=== PATIENT | female | born 2000 | race Caucasian/White ===

== ENCOUNTER 2020-09-18 10:08 | Outpatient (REF) | payer OTHER, SELFPAY | END 2020-09-18 10:09 | disposition home or self-care (01) | LOC: HO.LAB 10:08 | PROVIDERS: Visit Provider Internal Medicine | DX: Z20.828 Contact with and (suspected) exposure to other viral communicable diseases (principal) | CPT/HCPCS: 87635 ==

== ENCOUNTER 2020-09-24 14:32 | Outpatient (REF) | payer OTHER, SELFPAY | END 2020-09-24 14:33 | disposition home or self-care (01) | LOC: HO.LAB 14:32 | PROVIDERS: Visit Provider Internal Medicine | DX: Z20.828 Contact with and (suspected) exposure to other viral communicable diseases (principal) | CPT/HCPCS: 87635 ==

== ENCOUNTER 2021-11-05 15:48 | Outpatient (REF) | payer OTHER, SELFPAY ==
[2021-11-05 16:04] LABS: MANUAL DIFF FLAG NO
[2021-11-05 16:22] LABS: Basophils Absolute Auto 0.2 X10*3/uL (0.0-0.2); Basophils Percent Auto 1.2 % (0-2); Eosinophils Absolute Auto 0.4 X10*3/uL (0.0-0.4); Eosinophils Percent Auto 2.9 % (0-4); Hematocrit 38.6 % (37.0-47.0); Hemoglobin 12.3 g/dl (12.0-16.0); Imm Gran Abs Auto 0.06 X10*3/uL (0.00-0.03); Imm Gran Pct Auto 0.5 % (0.0-0.4); Lymphocytes Absolute Auto 3.5 X10*3/uL (1.2-4.9); Mean Corpuscular HGB Conc 31.9 g/dl (31.0-35.0); Mean Corpuscular Hemoglobin 26.5 pg (27.0-33.0); Mean Corpuscular Volume 83.2 fL (80.0-98.0); Mean Platelet Volume 9.7 fL (9.4-12.3); Monocytes Absolute Auto 0.9 X10*3/uL (0.1-1.2); Monocytes Percent Auto 7.5 % (2-11); NRBC Pct Auto 0.2 /100WBC (0.0-0.2); Neutrophils Absolute Auto 7.1 x10*3/uL (2.0-8.3); Neutrophils Percent Auto 58.9 % (45-73); Platelet Count 456 X10*3/uL (160-400); Red Blood Count 4.64 X10*6/uL (4.20-5.50); Red Cell Distribution Width 13.6 % (11.0-16.0); White Blood Count 12.1 X10*3/uL (4.8-10.8)
[2021-11-05 16:40] LABS: Alanine Aminotransferase 10 U/L (0-31); Albumin Level 4.1 g/dL (3.5-5.0); Alkaline Phosphatase 57 U/L (39-117); Anion Gap 11 (12-20); Aspartate Amino Transferase 13 U/L (5-31); Bilirubin Total 0.2 mg/dL (0.0-1.0); Blood Urea Nitrogen 12 mg/dL (9-16); Calcium 9.7 mg/dL (8.4-10.2); Carbon Dioxide 28 mmol/L (22-29); Chloride 104 mmol/L (96-108); Cholesterol 157 mg/dL; Estimated Glomerular Filt Rate > 60; Glucose Random 83 mg/dL (60-115); Potassium 4.3 mmol/L (3.3-5.1); Sodium 139 mmol/L (135-145); Total Protein 7.3 g/dL (6.5-8.0)
[2021-11-05 17:05] LABS: Free T4 (Free Thyroxine) 0.94 ng/dL (0.71-1.85); Thyroid Stimulating Hormone 1.46 uIU/mL (0.32-4.0)
[2021-11-05 17:12] LABS: Vitamin B12 643 pg/mL (200-900)
== END 2021-11-05 15:49 | disposition home or self-care (01) ==
LOC: HO.LAB 15:48
PROVIDERS: PCP Internal Medicine; Visit Provider Internal Medicine
DX: R53.83 Other fatigue (principal); L98.9 Disorder of the skin and subcutaneous tissue, unspecified; Z83.3 Family history of diabetes mellitus
CPT/HCPCS: 36415; 80053; 82465; 82607; 84439; 84443; 85025

== ENCOUNTER 2022-04-22 14:59 | Outpatient (REF) | payer OTHER, SELFPAY ==
[2022-04-23 21:06] LABS: Rubella IgG Antibody 1.54 Index; Rubeola IgG (Measles) <13.50 AU/mL
[2022-04-24 01:27] LABS: Varicella IgG Antibody <135.00 index
[2022-04-26 05:52] LABS: TS Negative Control Passed; TS Panel A 0; TS Panel B 3; TS Positive Control Passed; TSpotTB Negative (Negative)
[2022-04-26 08:04] LABS: HBS Num1 1.37 mIU/mL (0-7.99); ~Hepatitis B Surface Antibody NONREACTIVE (Nonreactive)
== END 2022-04-22 15:00 | disposition home or self-care (01) ==
LOC: HO.LAB 14:59
PROVIDERS: PCP Internal Medicine; Visit Provider Internal Medicine
DX: Z02.0 Encounter for examination for admission to educational institution (principal); Z11.1 Encounter for screening for respiratory tuberculosis
CPT/HCPCS: 36415; 86481; 86706; 86735; 86762; 86765; 86787

== ENCOUNTER 2023-03-31 23:16 | Emergency (ER) | payer OTHER, SELFPAY ==
[2023-03-31 23:22] VITALS: BP 130/84; PULSE 104; RESP 20; TEMP 36.7; O2SAT 100; BMI 26.5
--- NOTE | 2023-04-01 00:06 | ED_ITS ---
HPI - General Adult General Chief complaint: Weakness Stated complaint: Yellow hands/tiredness/headaches Time Seen by Provider: 03/31/23 23:59 Source: patient Mode of arrival: ambulatory Limitations: no limitations History of Present Illness HPI narrative: 22-year-old female withPMH of migraines presents with fatigue X1 month and yellowing between her fingers on her left hand X3 days. Patient reports she normally feels fatigued at baseline and she contributes this to migraines. Patient reports Excedrin typically resolves her migraines. Patient additionally reports that she recently started a women's multivitamin, and that the only change she can think of. She takes no other medications. Patient denies lig htheadedness, LOC, vision changes, dzziness, head trauma, fevers, chills, CP or SOB. Denies any other medical complaints. Related Data Previous Rx's Medication Instructions Recorded diphenhydramine HCl 25 mg capsule 25 mg PO TID PRN allergic reaction 04/01/23 (Benadryl) #20 caps ketorolac 10 mg tablet 10 mg PO TID PRN pain 5 days #15 04/01/23 tabs metoclopramide HCl 10 mg tablet 10 mg PO Q6H PRN headache #20 tabs 04/01/23 (Reglan) Allergies Allergy/AdvReac Type Severity Reaction Status Date / Time No Known Allergies Allergy Unverified 08/13/20 19:25 [No Known Allergies*] Review of Systems Review of Systems: Constitutional : No Weight loss, No Fever, No Chills, + Fatigue, No Malaise Eyes: No Eye Pain, No Swelling, No Redness, NO scleral icterus Cardiovascular : No Chest Pain, No SOB, No Dyspnea on Exertion, No Orthopnea, No Edema, No Palpitations Respiratory : No Cough, No Sputum, No Wheezing Gastrointestinal : No Nausea, No Vomiting, No Diarrhea, No Constipation, No abdominal Pain, No Hematochezia, No Melena Genitourinary : No Dysuria, No Urinary Frequency, No Hematuria, Musculoskeletal : No joint pain, No Myalgias, No Joint Swelling Skin : No Skin Lesions, Yellowing between finger-spaces on left hand Neuro : No Weakness, No Numbness, No Dizziness, No Headache Psych : No Anxiety/Panic, No Depression All other systems reviewed and are negative Yes all other systems are reviewed and are negative ON LICENSE OF [facility] Past Medical History Attestation statement: The following information was validated with the patient. Source: old records reviewed and nursing notes reviewed Social History Social History Advance Directives: No Advance Directives Information Provided: Yes Physical Exam ED Vital Signs: Vital Signs - 24 hr 03/31/23 23:22 Temperature 98.1 F Pulse Rate 104 H Respiratory Rate 20 Blood Pressure 130/84 Pulse Oximetry 100 BMI result Body Mass Index 26.5 VSS Appearance: Alert.? Oriented X3.? No acute distress.? Head: Normocephalic, atraumatic, no step-offs or deformities Eyes: Pupils equal, round and reactive to light.?No scleral icterus. Neck: Normal inspection.? Neck supple.? CVS: Normal heart rate and rhythm.? Pulses normal.? Respiratory: No respiratory distress.? Breath sounds normal.? Abdomen: Soft and nontender.? Skin: Skin warm and dry.? Normal skin turgor.?Yellow discoloration in web-spaces on left hand unlikely jaundice, likely secondary to contact with object or fomite. No jaundice. Extremities: No lower extremity edema.? No calf ttp. 5/5 strength to bilateral upper and lower extremities Back: No midline tenderness, no C-spine tenderness, full range of motion, no CVA tenderness bilaterally Neuro: Oriented X 3.? No motor deficit.? No sensory deficit. CN 2-12 intact Course Reevaluation(s) Reevaluation #1: Patient complained of headache therefore headache regimen was given Time: 00:17 Reevaluation #2: CBC with slight leukocytosis 14.9, I do not suspect infection on this patient, baseline labs to appear to have a slight leukocytosis also, no acute electrolyte abnormalities requiring intervention. Liver enzymes within normal limits. Beta hCG negative. Toradol, Reglan and Benadryl given w/ improvmemt of sx. Patient will be di scharged home on same. Patient feels better about labs being normal, she states she was anxious about her hands being discolored. Will have her follow up with PCP and Dermatology if this persists. Educated patient on diagnosis and treatment plan, answered all question, patient verbalizes understanding. At this time patient will be discharged home, advised to return with new or worsening symptoms. Educated on worrisome signs and symptoms and when to return. At this time I feel comfortable discharge home. Time: 00:59 Medications Administered Discontinued Medications Generic Name Dose Route Start Last Admin Trade Name Pooja PRN Reason Stop Dose Admin Diphenhydramine HCl 50 mg 04/01/23 00:17 04/01/23 00:42 Diphenhydramine Hcl 50 Mg/Ml Vial IVPUSH 04/01/23 00:18 50 mg ONCE ONE Administration Ketorolac Tromethamine 30 mg 04/01/23 00:17 04/01/23 00:43 Ketorolac Tromethamine 15 Mg/Ml Vial IVPUSH 04/01/23 00:18 30 mg ONCE ONE Administration Metoclopramide HCl 10 mg 04/01/23 00:17 04/01/23 00:44 Metoclopramide Hcl 10 Mg/2 Ml Vial IVPUSH 04/01/23 00:18 10 mg ONCE ONE Administration Medical Decision Making Medical Decision Making [facility] Narrative: 22 year old female presents with fatigue X1 month and skin yellowing on left hand X3 days. Patient additionally endorses frontal band-like headache during physical examination. PE: Skin: Skin warm and dry.? Normal skin turgor.?Yellow discoloration in web- spaces on left hand. Plan: basic labs Ddx: Typical migraine, anemia, electrolyte abnormalities, chronic fatigue, anxiety. Unlikely stroke, posterior stroke, ICH. Skin discoloration unlikely jaundice, likely secondary to contact with object or fomite. No signs of meningitis or encephalitis. Differential Diagnosis Differential Diagnoses: The differential diagnosis associated with the presentation includes Typical migraine, anemia, electrolyte abnormalities, chronic fatigue, anxiety. Unlikely stroke, posterior stroke, ICH. Skin discoloration unlikely jaundice, likely secondary to contact with object or fomite. No signs of meningitis or encephalitis Admission/Observation Consideration of admission/observation: Escalation of care including admission/observation considered Lab Data [facility] Lab Attestation statement: I reviewed the patient's lab results. 04/01/23 00:11 04/01/23 00:11 Labs: Lab Results 04/01/23 04/01/23 Range/Units 00:11 00:11 WBC 14.9 H (4.8-10.8) X10*3/uL RBC 4.93 (4.20-5.50) X10*6/uL Hgb 12.9 (12.0-16.0) g/dl Hct 40.5 (37.0-47.0) % MCV 82.2 (80.0-98.0) fL MCH 26.2 L (27.0-33.0) pg MCHC 31.9 (31.0-35.0) g/dl RDW 13.9 (11.0-16.0) % Plt Count 404 H (160-400) X10*3/uL MPV 10.0 (9.4-12.3) fL Immature Gran % (Auto) 0.5 H (0.0-0.4) % Neut % (Auto) 59.0 (45-73) % Lymph % (Auto) 28.9 (20-40) % [place] % (Auto) 7.4 (2-11) % Eos % (Auto) 3.3 (0-4) % Baso % (Auto) 0.9 (0-2) % Lymph # (Auto) 4.3 (1.2-4.9) X10*3/uL [place] # (Auto) 1.1 (0.1-1.2) X10*3/uL Eos # (Auto) 0.5 H (0.0-0.4) X10*3/uL Baso # (Auto) 0.1 (0.0-0.2) X10*3/uL Abs Immat Gran (auto) 0.08 H (0.00-0.03) X10*3/uL Absolute Neuts (auto) 8.8 H (2.0-8.3) x10*3/uL Absolute Nucleated RBC 0.000 (0.0-0.012) X10*3/uL Nucleated RBC % (auto) 0.0 (0.0-0.2) /100WBC Sodium 140 (135-145) mmol/L Potassium 3.9 (3.3-5.1) mmol/L Chloride 109 H (96-108) mmol/L Carbon Dioxide 24 (22-29) mmol/L Anion Gap 11 L (12-20) BUN 13 (9-16) mg/dL Creatinine 0.72 (0.5-1.4) mg/dL Estim Creat Clear Calc 107.2 Estimated GFR > 60 Random Glucose 103 (60-115) mg/dL Calcium 9.2 (8.4-10.2) mg/dL Total Bilirubin 0.2 (0.0-1.0) mg/dL Direct Bilirubin < 0.2 (0.0-0.5) mg/dL AST 13 (5-31) U/L ALT 19 (0-31) U/L Alkaline Phosphatase 58 (39-117) U/L Total Protein 6.7 (6.5-8.0) g/dL Albumin 3.9 (3.5-5.0) g/dL Beta HCG, Quant < 2 mIU/mL Core Measures AMI core measures followed: Yes Measure exclusions: not indicated Critical Care Time Critical Care Time Critical Care Time: No Discharge Plan Discharge Clinical Impression: Headache, Discoloration of skin Patient Disposition: Home, Self-Care Instructions: Acute Headache (DC) Additional Instructions: Take your medications as prescribed. If you were prescribed antibiotics today, it is important that you take your medication to their entirety, do not skip any doses, do not finish them early. Follow-up with your primary care provider this week. Follow-up with dermatology is skin discoloration continues. Return to the emergency department with new or worsening symptoms. Such as fevers, chills, chest pain, shortness of breath, nausea, vomiting, dizziness, headache, vision changes, lethargy In case of emergency call 911 For headaches I have sent Reglan, Benadryl and Toradol to your pharmacy. Please always take Reglan and Benadryl together, taking Reglan alone can lead to involuntary muscle spasms. Toradol has been sent to your pharmacy, you tolerated this well in the department. Please take this as prescribed do not take this with ibuprofen, or other NSAIDs, do not mix this with alcohol. Side effects of this medication including increased risk for bleeding and possible kidney injury. Prescriptions: New ketorolac 10 mg tablet 10 mg PO TID PRN (Reason: pain) 5 Days Qty: 15 0RF diphenhydramine HCl [Benadryl] 25 mg capsule 25 mg PO TID PRN (Reason: allergic reaction) Qty: 20 0RF metoclopramide HCl [Reglan] 10 mg tablet 10 mg PO Q6H PRN (Reason: headache) Qty: 20 0RF Referrals: Physician,None [Primary Care Provider] - 2 days Stand Alone Forms: Work/School Release
[2023-04-01 00:22] LABS: MANUAL DIFF FLAG NO
[2023-04-01 00:23] LABS: Basophils Absolute Auto 0.1 X10*3/uL (0.0-0.2); Basophils Percent Auto 0.9 % (0-2); Eosinophils Absolute Auto 0.5 X10*3/uL (0.0-0.4); Eosinophils Percent Auto 3.3 % (0-4); Hematocrit 40.5 % (37.0-47.0); Hemoglobin 12.9 g/dl (12.0-16.0); Imm Gran Abs Auto 0.08 X10*3/uL (0.00-0.03); Imm Gran Pct Auto 0.5 % (0.0-0.4); Lymphocytes Absolute Auto 4.3 X10*3/uL (1.2-4.9); Lymphocytes Percent Auto 28.9 % (20-40); Mean Corpuscular HGB Conc 31.9 g/dl (31.0-35.0); Mean Corpuscular Hemoglobin 26.2 pg (27.0-33.0); Mean Corpuscular Volume 82.2 fL (80.0-98.0); Monocytes Absolute Auto 1.1 X10*3/uL (0.1-1.2); Monocytes Percent Auto 7.4 % (2-11); Neutrophils Absolute Auto 8.8 x10*3/uL (2.0-8.3); Platelet Count 404 X10*3/uL (160-400); Red Blood Count 4.93 X10*6/uL (4.20-5.50); Red Cell Distribution Width 13.9 % (11.0-16.0); White Blood Count 14.9 X10*3/uL (4.8-10.8)
--- OUTSIDE RECORDS SUMMARY | 2023-04-01 00:28 | XMS_ITS | Continuity of Care Document ---
Author Name Unknown Organization [facility] Adult Address [address] [place] [address]- Care Team Providers Care Brim Presser Name Role Phone Not on Staff, PCP Primary Care Physician Unavail able Encounter [facility] Date(s): 01/14/22 - 02/13/22 [facility] [address] [place] [address]- Attending Physician: Don Molina Admitting Physician: Don Molina Referring Physician: AdmtrDon Allergies, Adverse Reactions, Alerts No Known Allergies Immunizations Given and Recorded Vaccine Date Status Refusal Reason Human Papillomavirus Vaccine 09/28/10 Given Varicella Virus Vaccine 09/28/10 Given Varicella Virus Vaccine 1 12/28/99 Given Meningococcal Conjugate Vaccine 09/28/10 Given tetanus/diphtheria/pertussis, acel(Tdap) 09/28/10 Given influenza virus vaccine, inactivated 09/28/10 Give n influ virus vac, H1N1, inactive(oldterm) 12/15/09 Given Influenza Vaccine (oldterm) 12/15/09 Given Influenza Inactive (IM) (oldterm) 10/29/04 Given diphtheria/tetanus/pertussis, acel(DTaP) 2 06/17/04 Given diphtheria/tetanus/pertussis, acel(DTaP) 3 12/28/99 Given diphtheria/tetanus/pertussis, acel(DTaP) 4 08/12/99 Given diphtheria/tetanus/pertussis, acel(DTaP) 5 02/08/99 Given diphtheria/tetanus/pertussis, acel(DTaP) 6 98 Given Measles/Mumps/Rubella Virus Vaccine 7 10/01/02 Giv en Measles/Mumps/Rubella Virus Vaccine 8 10/28/99 Giv en Poliovirus Vaccine, Inactivated 9 10/01/02 Given Poliovirus Vaccine, Inactivated 10 08/12/99 Given Poliovirus Vaccine, Inactivated 11 02/08/99 Given Poliovirus Vaccine, Inactivated 12 98 Given Haemophilus B Conj Vaccine (oldterm) 13 12/28/99 G iven Haemophilus B Conj Vaccine (oldterm) 14 08/12/99 G iven Haemophilus B Conj Vaccine (oldterm) 15 02/08/99 G iven Haemophilus B Conj Vaccine (oldterm) 16 98 G iven Hepatitis B Vaccine (old term) 17 08/12/99 Given Hepatitis B Vaccine (old term) 18 02/08/99 Given Hepatitis B Vaccine (old term) 19 98 Given 1Admin Note: RAJI 2Admin Note: DTAP 3Admin Note: DTAP 4Admin Note: DTAP 5Admin Note: DTAP 6Admin Note: DTAP 7Admin Note: MMR 8Admin Note: MMR 9Admin Note: IPV/OPV 10Admin Note: IPV/OPV 11Admin Note: IPV/OPV 12Admin Note: IPV/OPV 13Admin Note: HIB 14Admin Note: HIB 15Admin Note: HIB 16Admin Note: HIB 17Admin Note: HEP B 18Admin Note: HEP B 19Admin Note: HEP B Medications Aerochamber See Instructions, # 1 each, Maintenance, use with albuterol, 09/28/10 15:20:03 Start Date: 09/28/10 Status: Ordered benzoyl peroxide topical 2.5% gel 1 application, Topically, Daily, at bedtime, # 42 Gm, 0 Refills, Maintenance, 12/30/14 11:24:29, Gel, 1 application Topically Daily,Instr:at bedtime Start Date: 12/30/14 Status: Ordered Flonase 0.05 mg/inh nasal spray 2 sprays, Nasal, Daily, # 16 Gm, 5 Refills, Maintenance, for allergy season, 12/30/14 11:11:32, 2 sprays Nasal Daily Start Date: 12/30/14 Status: Ordered loratadine 10 mg oral tablet 1 tablet = 10 mg, By Mouth, Daily, # 30 tablet, 5 Refills, Maintenance, 12/30/14 11:11:40, Tablet, 1 tablet By Mouth Daily Start Date: 12/30/14 Status: Ordered ProAir HFA 90 mcg/inh inhalation aerosol with adapter 2 puffs, Inhalation, Every 4 hours, PRN for wheezing, 1 for school 1 for home, # 2 each, 5 Refills,Maintenance, 12/30/14 11:11:37, Aerosol, 2 puffs Inhalation Every 4 hours,PRN:for wheezing,Instr:1 for school 1 for home Start Date: 12/30/14 Status: Ordered Problem List Condition Effective Dates Status Health Status Inform ant Asthma(Confirmed) Active
--- OUTSIDE RECORDS SUMMARY | 2023-04-01 00:28 | XMS_ITS | Continuity of Care Document ---
Author Name Unknown Organization [facility] Adult Address [address] [place] [address]- Care Team Providers Care Instrument Repairer Helper Name Role Phone Not on Staff, PCP Primary Care Physician Unavail able Encounter [facility] Date(s): 10/18/21 - 02/13/22 [facility] Adult [address] [place] [address]- Attending Physician: Rolando ELLIS[facility] Allergies, Adverse Reactions, Alerts No Known Allergies [...]
--- OUTSIDE RECORDS SUMMARY | 2023-04-01 00:28 | XMS_ITS | Continuity of Care Document ---
Author Name Unknown Organization [facility] Adult Address [address] [place] [address]- Care Team Providers Care Field Sales Engineer Name Role Phone Not on Staff, PCP Primary Care Physician Unavail able Encounter [facility] Date(s): 10/18/21 - 11/17/21 [facility] [address] [place] [id number] Allergies, Adverse Reactions, Alerts Substance Reaction Severity Status NKA Active Immunizations Given and Recorded Vaccine Date Status [...]
[2023-04-01] MEDS: diphenhydrAMINE HCL 50 MG/ML VIAL IVPUSH (00:42)
[2023-04-01] MEDS: Ketorolac Tromethamine 15 MG/ML VIAL 30 MG IVPUSH (00:43)
[2023-04-01] MEDS: Metoclopramide HCl 10 MG/2 ML VIAL IVPUSH (00:44)
[2023-04-01 00:48] LABS: Alanine Aminotransferase 19 U/L (0-31); Albumin Level 3.9 g/dL (3.5-5.0); Alkaline Phosphatase 58 U/L (39-117); Anion Gap 11 (12-20); Aspartate Amino Transferase 13 U/L (5-31); Bilirubin Direct < 0.2 mg/dL (0.0-0.5); Bilirubin Total 0.2 mg/dL (0.0-1.0); Blood Urea Nitrogen 13 mg/dL (9-16); Calcium 9.2 mg/dL (8.4-10.2); Carbon Dioxide 24 mmol/L (22-29); Chloride 109 mmol/L (96-108); Creatinine Clr Calc Pharmacy 107.2; Estimated Glomerular Filt Rate > 60; Glucose Random 103 mg/dL (60-115); HCG Quantitative < 2 mIU/mL; Potassium 3.9 mmol/L (3.3-5.1); Sodium 140 mmol/L (135-145); Total Protein 6.7 g/dL (6.5-8.0)
== END 2023-04-01 01:38 | disposition home or self-care (01) ==
PROVIDERS: Emergency Medicine Emergency Medical Services; Physician Assistant; Emergency Provider Emergency Medicine
DX: R51.9 Headache, unspecified (principal); L81.9 Disorder of pigmentation, unspecified; D72.829 Elevated white blood cell count, unspecified
CPT/HCPCS: 36415; 80048; 80076; 84702; 85025; 96374; 96375; 99283; 99284; J1200; J1885; J2765